=== PATIENT | male | born 1985 | race Caucasian/White ===

== ENCOUNTER 2017-08-24 19:48 | Emergency (ER) | payer OTHER ==
[2017-08-25] MEDS: IBUPROFEN 800 MG TAB PO (00:22)
== END 2017-08-25 01:50 | disposition home or self-care (01) ==
LOC: FTE 08-25 01:50
DX: S62.91XA Unspecified fracture of right hand, initial encounter for closed fracture (principal); J45.909 Unspecified asthma, uncomplicated; F17.210 Nicotine dependence, cigarettes, uncomplicated; W22.8XXA Striking against or struck by other objects, initial encounter; Y92.9 Unspecified place or not applicable
CPT/HCPCS: 29125; 73110-RT; 73130-RT; 99283-25